=== PATIENT | female | born 1975 | race Caucasian/White ===

== ENCOUNTER → 2024-04-19 10:25 | Outpatient (REF) | payer BC, SELFPAY | LOC: HWRAD 10:25 | PROVIDERS: ATTENDING PHYSICIAN Obstetrics & Gynecology; FAMILY PHYSICIAN Internal Medicine; REFERRING PHYSICIAN Obstetrics & Gynecology | DX: R14.0 Abdominal distension (gaseous) (principal) | CPT/HCPCS: 76830; 76856 ==